=== PATIENT | male | born 1960 | race Caucasian/White ===

== ENCOUNTER 2017-02-22 08:14 | Emergency (ER) | payer OTHER ==
[~2017-02-22] VITALS: Ht 177.8 cm; Wt 81.6 kg
[2017-02-22 08:33] VITALS: Ht 177.8 cm; Wt 81.6 kg
[2017-02-22 11:20] VITALS: BP 116/64
== END 2017-02-22 11:20 | disposition home or self-care (01) ==
LOC: ED 08:14
DX: J01.90 Acute sinusitis, unspecified (principal)
CPT/HCPCS: J1885; J2765